=== PATIENT | female | born 1990 | race Caucasian/White ===

== ENCOUNTER 2019-09-22 12:05 | Emergency (ER) | payer OTHER ==
[~2019-09-22] VITALS: Ht 165.1 cm; Wt 80.3 kg
[2019-09-22 12:16] VITALS: BP 105/41
--- NOTE | 2019-09-22 12:30 | NUR ---
PT AMBULATED TO BED 6, STEADY GAIT.
--- NOTE | 2019-09-22 12:37 | NUR ---
29 Y/F PRESENTS TO ED FOR DIFFUSE ABDOMINAL PAIN 03/15 SINCE YESTERDAY. REPORTS PAIN IS "SHARP AND HEAVY." PT REPORTS NAUSEA. DENIES DIARRHEA, VOMITING, OR DYSURIA. PT REPORTS PAIN IS WORSE WITH MOVEMENT. PT ALSO REPORTS SHE HAD A SORE THROAT 3 DAYS AGO BUT HAS NOW SUBSIDED. REPORTS NO COUGH, BUT HAS HAD CHILLS. PT SELF MEDICATING WITH ALEVE AND THERAFLU. ABDOMEN SOFT, BS ACTIVE. PMH- DENIES
[2019-09-22] MEDS ORDERED: NACL 0.9% 1,000 ML IV SCH (13:28)
[2019-09-22] MEDS ORDERED: KETOROLAC 30 MG/ML VIAL IVP ONE (13:30)
--- NOTE | 2019-09-22 13:53 | NUR ---
PT TAKEN TO XR VIA WC.
[2019-09-22 14:04] LABS: BASOPHILS % (AUTO) 0.3 % (0.0-2.0); HEMATOCRIT 37.1 % (36-48); HEMOGLOBIN 12.4 g/dL (12.0-16.0); LYMPHOCYTES # (AUTO) 0.4 K/uL (2.5-16.5); LYMPHOCYTES % (AUTO) 2.7 % (20.5-51.1); MEAN CORPUSCULAR HEMOGLOBIN 30 pg (27-31); MEAN CORPUSCULAR HGB CONC 34 g/dL (33-37); MEAN CORPUSCULAR VOLUME 90.7 fL (80-94); MONOCYTES # (AUTO) 0.4 K/uL (0.8-1.0); MONOCYTES % (AUTO) 3.1 % (1.7-9.3); NEUTROPHILS # (AUTO) 12.7 K/uL (1.8-7.7); NEUTROPHILS % (AUTO) 93.9 % (42.2-75.2); PLATELET COUNT (AUTO) 183 K/uL (140-450); RED BLOOD CELL COUNT(AUTO) 4.09 MIL/uL (4.20-5.40); RED CELL DISTRIBUTION WIDTH 13.4 % (11.6-13.7); WHITE BLOOD COUNT (AUTO) 13.6 K/uL (4.8-10.8)
[2019-09-22 14:26] LABS: ALBUMIN 3.9 g/dL (3.4-5.0); ANION GAP 13.9 (8-16); CARBON DIOXIDE 26.7 mmol/L (21-32); CREATININE 0.7 mg/dL (0.6-1.3); POTASSIUM 3.6 mmol/L (3.5-5.1); TOTAL BILIRUBIN 3.8 mg/dL (0.0-1.0)
[2019-09-22] MEDS ORDERED: ONDANSETRON 4 MG/2 ML VIAL IVP ONE (14:40)
[2019-09-22] MEDS ORDERED: PANTOPRAZOLE 40 MG INJ VIAL IVP ONE (14:40)
--- NOTE | 2019-09-22 14:50 | NUR ---
NADR, DECREASED PAIN /10
--- NOTE | 2019-09-22 14:53 | NUR ---
PT DECLINED ZOFRAN AND PROTONIX, STATES SHE IS NOT NAUSEOUS. DR. HOOKS MADE AWARE.
[2019-09-22 15:44] VITALS: BP 119/49
--- NOTE | 2019-09-22 15:44 | NUR ---
Patient discharged with v/s stable. Written and verbal after care instructions given and explained. Patient alert, oriented and verbalized understanding of instructions. Ambulatory with steady gait. All questions addressed prior to discharge. ID band removed. Patient advised to follow up with PMD. Rx of MOTRIN, MINERAL OIL, AND MIRALAX given. Patient educated on indication of medication including possible reaction and side effects. Opportunity to ask questions provided and answered.
== END 2019-09-22 15:44 | disposition home or self-care (01) ==
LOC: MED 12:05
DX: R10.13 Epigastric pain (principal); R10.84 Generalized abdominal pain; R10.30 Lower abdominal pain, unspecified; Z90.49 Acquired absence of other specified parts of digestive tract
CPT/HCPCS: 36415; 74022; 80053; 81002; 81025; 85025; 87040; 96374; 99284; C9113; J1885; J2405; J7030